=== PATIENT | female | born 1965 | race Caucasian/White ===

== ENCOUNTER → 2019-09-15 13:42 | Outpatient (BNVA) | payer BC, SELFPAY | PROVIDERS: Family Provider Family Medicine; PCP Family Medicine; Visit Provider Nurse Practitioner Women's Health | DX: Z01.89 Encounter for other specified special examinations (principal) ==

== ENCOUNTER 2019-09-22 07:26 | Day surgery (SDC) | payer BC, SELFPAY ==
[2019-09-21 13:12] VITALS: BMI 48.7
[2019-09-22 07:47] VITALS: BP 115/78; PULSE 83; RESP 18; TEMP 36.2; O2SAT 98
[2019-09-22] MEDS: sodium chloride 0.9% 1,000 ML 30 ML (07:55)
[2019-09-22 08:05] LABS: Glucose Point of Care 133 mg/dL (70-110)
--- NOTE | 2019-09-22 08:20 | P.ANESASSM_ITS ---
Pre-Anesthetic Assessment Pre-Anesthetic Assessment: Height/Weight: Height 1.65 m Weight 132.903 kg Temp Pulse Resp BP Pulse Ox 97.2 F L 83 18 115/78 98 09/22/19 07:47 09/22/19 07:47 09/22/19 07:47 09/22/19 07:47 09/22/19 07:47 Proposed Procedure: Operation Date: 09/22/19 08:30 Proposed Procedures p Colonoscopy 45896 Z86.010(Not Applicable) - Luisito Murray MD Was Beta Yong taken within 24 hours: Yes Social: Social History: Alcohol, No alcohol and No tobacco Exam: Pre-Anes Outpt Exam: alert, oriented x 3, clear to auscultation bilaterally and regular rate & rhythm Airway: Submandibular: WNL Cervical ROM: WNL MP: 2 Dentition: Full History/ROS: No significant history except as noted and No significant complaints Pulmonary: Pulmonary: Asthma CV/HEM: CV/HEM: HTN : : None reported Hepatic: Hepatic: None reported GI: GI: None reported Metabolic: Metabolic: DM and Thyroid Musc/skel: Musc/skel: None reported Neuropsych: Neuropsych: Anxiety Anesthetic Plan: ASA status: 3 Anesthesia: Anesthesia Evaluation and MAC Risk of > 500 ml blood loss (7ml/kg in children): No PFSH Anesthesia PFSH: Medical History (Updated 09/16/19 @ 06:56 by Kaya Hernandez DO) Asthma Diabetes GERD (gastroesophageal reflux disease) H/O adenomatous polyp of colon Joe's disease Hypertension Seasonal allergies Social History Smoking and tobacco status: never smoked Alcohol intake: current Alcohol intake frequency: holidays/special occasions only Lives independently: Yes Household members: spouse Marital status: Current occupational status: employed 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 History of recent travel: No Female Reproductive History: Date of last menstrual period: 09/09/19 Data Anesthesia Other Labs: Laboratory Results - last 48 hr 09/22/19 07:54 POC Glucose 133 Cardiac Studies: No Data to Display
--- NOTE | 2019-09-22 08:40 | PM.HPUD ---
H&P update H&P Update: DATE OF SURGERY/PROCEDURE: 09/22/19 DATE H&P PERFORMED: 08/24/19 H&P UPDATE INFORMATION: H&P completed within last 30 days and No changes to prior documentation PLANNED PROCEDURE: Operation Date: 09/22/19 08:30 Proposed Procedures p Colonoscopy 07236 Z86.010(Not Applicable) - Luisito Murray MD Full H&P Perinent History: Medical/Surgical History: Medical History (Updated 09/16/19 @ 06:56 by Kaya Hernandez DO) Asthma Diabetes GERD (gastroesophageal reflux disease) H/O adenomatous polyp of colon Joe's disease Hypertension Seasonal allergies Family History: Family History (Updated 09/15/19 @ 14:03 by Sarah Lee LPN) Father Cancer Lung Diabetes Stroke Mother Family history of thyroid problem Diabetes Heart disease Hypertension Stroke Sister Diabetes Anesthesia complication Had Stoke due to anesthesia. 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 History of recent travel: No
[2019-09-22 08:43] VITALS: BP 82/42; PULSE 66; RESP 16; TEMP 36.8; O2SAT 93
[2019-09-22 08:51] VITALS: BP 92/57; PULSE 68; RESP 18; O2SAT 100
== END 2019-09-22 09:10 | disposition home or self-care (01) ==
PROVIDERS: Family Provider Family Medicine; PCP Family Medicine; Visit Provider Surgery
PROC: 0DJD8ZZ Inspection of Lower Intestinal Tract, Via Natural or Artificial Opening Endoscopic (ICD-10-PCS; CPT 45378; principal; 2019-09-22 08:30)
DX: Z12.11 Encounter for screening for malignant neoplasm of colon (principal); Z86.010 Personal history of colon polyps; J45.909 Unspecified asthma, uncomplicated; K21.9 Gastro-esophageal reflux disease without esophagitis; I10 Essential (primary) hypertension; Z82.49 Family history of ischemic heart disease and other diseases of the circulatory system; Z83.3 Family history of diabetes mellitus; E11.9 Type 2 diabetes mellitus without complications
CPT/HCPCS: 12345; 36416; 45378; 82962; J2704; J7030

== ENCOUNTER 2019-10-21 11:03 | Outpatient (CLI) | payer BC, SELFPAY ==
--- NOTE | 2019-10-21 11:30 | MM_ITS ---
WS: [id number] BILATERAL DIGITAL SCREENING MAMMOGRAPHY WITH CAD CLINICAL INFORMATION: Screening HISTORY: Screening mammogram. No current complaints. COMPARISON: None. TECHNIQUE: Bilateral CC and MLO views. FINDINGS: The breasts are composed of heterogeneous fibroglandular density tissue, which can limit the detectio n of small underlying mass lesions. Lucent centered calcifications. No suspicious mass, asymmetry, ca lcifications, or architectural distortion. No evidence of malignancy. MM/[place] [id number] IMPRESSION: BI-RADS: 2-Benign FOLLOW UP: 1 Year Follow-up Recommend return to annual screening mammography.
== END 2019-10-21 11:04 | disposition home or self-care (01) ==
LOC: RADSHAW 11:05
PROVIDERS: Family Provider Family Medicine; PCP Family Medicine; Visit Provider Nurse Practitioner Women's Health
DX: Z12.31 Encounter for screening mammogram for malignant neoplasm of breast (principal)
CPT/HCPCS: 77067

== ENCOUNTER → 2019-12-08 08:28 | Outpatient (BNVA) | payer BC, SELFPAY | PROVIDERS: Family Provider Family Medicine; PCP Family Medicine; Visit Provider Family Medicine | DX: R30.0 Dysuria (principal); I10 Essential (primary) hypertension; E11.9 Type 2 diabetes mellitus without complications; N95.1 Menopausal and female climacteric states | CPT/HCPCS: 80053; 80061; 81000; 82044; 83036; 85025 ==

== ENCOUNTER → 2020-01-13 16:15 | Outpatient (BNVA) | payer BC, SELFPAY | PROVIDERS: Family Provider Family Medicine; PCP Family Medicine; Referring Provider Family Medicine; Visit Provider Family Medicine | DX: Z79.899 Other long term (current) drug therapy (principal); E11.9 Type 2 diabetes mellitus without complications | CPT/HCPCS: 36415; 80053 ==

== ENCOUNTER → 2020-02-26 14:57 | Outpatient (BNVA) | payer BC, SELFPAY | PROVIDERS: Family Provider Family Medicine; PCP Family Medicine; Visit Provider Family Medicine | DX: E78.5 Hyperlipidemia, unspecified (principal); E11.9 Type 2 diabetes mellitus without complications; E06.3 Autoimmune thyroiditis | CPT/HCPCS: 80053; 80061; 83036; 84443 ==

== ENCOUNTER → 2020-04-13 17:00 | Outpatient (BNVA) | payer BC, SELFPAY | PROVIDERS: Family Provider Family Medicine; PCP Family Medicine; Visit Provider Family Medicine | DX: E06.3 Autoimmune thyroiditis (principal) | CPT/HCPCS: 84443 ==

== ENCOUNTER → 2020-05-30 16:07 | Outpatient (BNVA) | payer BC, SELFPAY | PROVIDERS: Family Provider Family Medicine; PCP Family Medicine; Visit Provider Family Medicine | DX: E06.3 Autoimmune thyroiditis (principal) | CPT/HCPCS: 84443 ==

== ENCOUNTER → 2020-07-27 10:20 | Outpatient (BNVA) | payer BC, SELFPAY | PROVIDERS: Family Provider Family Medicine; PCP Family Medicine; Visit Provider Nurse Practitioner Family | DX: Z20.828 Contact with and (suspected) exposure to other viral communicable diseases (principal); R68.89 Other general symptoms and signs | CPT/HCPCS: 87635 ==

== ENCOUNTER → 2020-09-12 11:33 | Outpatient (BNVA) | payer BC, SELFPAY | PROVIDERS: Family Provider Family Medicine; PCP Family Medicine; Visit Provider Family Medicine | DX: E78.5 Hyperlipidemia, unspecified (principal); E11.9 Type 2 diabetes mellitus without complications; E06.3 Autoimmune thyroiditis; I10 Essential (primary) hypertension; M79.671 Pain in right foot; Z68.41 Body mass index [BMI] 40.0-44.9, adult | CPT/HCPCS: 73630; 80053; 80061; 81015; 82043; 83036; 85025 ==

== ENCOUNTER → 2021-02-07 08:30 | Outpatient (BNVA) | payer BC, SELFPAY | PROVIDERS: Family Provider Family Medicine; PCP Family Medicine; Visit Provider Family Medicine | DX: E06.3 Autoimmune thyroiditis (principal); R60.0 Localized edema | CPT/HCPCS: 84443 ==

== ENCOUNTER → 2021-03-07 09:13 | Outpatient (BNVA) | payer BC, SELFPAY | PROVIDERS: Family Provider Family Medicine; PCP Family Medicine; Visit Provider Family Medicine | DX: I10 Essential (primary) hypertension (principal); R60.0 Localized edema | CPT/HCPCS: 80048 ==

== ENCOUNTER → 2021-04-04 12:00 | Outpatient (BNVA) | payer BC, SELFPAY | PROVIDERS: Family Provider Family Medicine; PCP Family Medicine; Visit Provider Family Medicine | DX: R60.0 Localized edema (principal) | CPT/HCPCS: 80048 ==

== ENCOUNTER → 2021-06-06 16:59 | Outpatient (BNVA) | payer BC, SELFPAY | PROVIDERS: Family Provider Family Medicine; PCP Family Medicine; Visit Provider Nurse Practitioner Family | DX: N39.0 Urinary tract infection, site not specified (principal) | CPT/HCPCS: 81000; 87077; 87086; 87184 ==

== ENCOUNTER → 2021-07-31 10:51 | Outpatient (BNVA) | payer BC, SELFPAY | PROVIDERS: Family Provider Family Medicine; PCP Family Medicine; Visit Provider Family Medicine | DX: E11.9 Type 2 diabetes mellitus without complications (principal); E06.3 Autoimmune thyroiditis; E78.5 Hyperlipidemia, unspecified; I10 Essential (primary) hypertension | CPT/HCPCS: 80053; 80061; 82043; 83036; 84443; 85025 ==

== ENCOUNTER → 2021-09-01 14:50 | Outpatient (BNVA) | payer BC, SELFPAY | PROVIDERS: Family Provider Family Medicine; PCP Family Medicine; Visit Provider Nurse Practitioner Family | DX: J02.9 Acute pharyngitis, unspecified (principal); Z20.822 Contact with and (suspected) exposure to COVID-19 | CPT/HCPCS: 87635; 87880 ==

== ENCOUNTER → 2021-10-30 08:39 | Outpatient (BNVA) | payer BC, SELFPAY | PROVIDERS: Family Provider Family Medicine; PCP Family Medicine; Visit Provider Family Medicine | DX: E11.9 Type 2 diabetes mellitus without complications (principal); Z12.31 Encounter for screening mammogram for malignant neoplasm of breast | CPT/HCPCS: 80053; 83036 ==

== ENCOUNTER → 2021-11-10 10:42 | Outpatient (BNVA) | payer BC, SELFPAY | PROVIDERS: Family Provider Family Medicine; PCP Family Medicine; Visit Provider Nurse Practitioner Women's Health | DX: N95.0 Postmenopausal bleeding (principal); N76.3 Subacute and chronic vulvitis | CPT/HCPCS: 82670; 83001; 87624 ==

== ENCOUNTER 2021-11-28 09:56 | Outpatient (CLI) | payer BC, SELFPAY ==
--- NOTE | 2021-11-28 10:06 | MM_ITS ---
WS: [id number] VIEWS: MLO and CC views both breasts. 3D digital tomosynthesis is also included in this exam. Comparison made with prior exam of 10/21/2019. Findings: There was no sign of mass, architectural distortion or suspicious calcification in either breast. He terogeneously dense MM/[place] [id number] Impression: BI-RADS: 2-Benign FOLLOW-UP: 1 Year Follow-up This mammogram was also analyzed by the Computer Aided Detection System R2 Imag e Ultrasound Technol.
== END 2021-11-28 09:57 | disposition home or self-care (01) ==
LOC: RAD 09:58
PROVIDERS: PCP Family Medicine; Visit Provider Family Medicine
DX: Z12.31 Encounter for screening mammogram for malignant neoplasm of breast (principal)
CPT/HCPCS: 77063; 77067

== ENCOUNTER → 2021-12-01 11:02 | Outpatient (BNVA) | payer BC, SELFPAY | PROVIDERS: PCP Family Medicine; Visit Provider Nurse Practitioner Women's Health | DX: N95.0 Postmenopausal bleeding (principal) | CPT/HCPCS: 76830 ==

== ENCOUNTER → 2022-01-12 10:28 | Outpatient (BNVA) | payer BC, SELFPAY | PROVIDERS: PCP Family Medicine; Visit Provider Obstetrics & Gynecology | DX: Z01.812 Encounter for preprocedural laboratory examination (principal); Z01.818 Encounter for other preprocedural examination; N95.0 Postmenopausal bleeding | CPT/HCPCS: 80053; 81000; 81025; 85025; 86850; 86900 ==

== ENCOUNTER 2022-01-17 06:47 | Day surgery (SDC) | payer BC, SELFPAY ==
[2022-01-12 13:08] VITALS: BMI 45.9
--- NOTE | 2022-01-12 16:07 | ANES.PREANE2 ---
Pre-Anesthetic Assessment Height/Weight: Height 1.65 m Weight 125.191 kg Preop Diagnosis: post menopausal bleeding Operation Date: 01/17/22 08:30 Proposed Procedures p Hysteroscopy, dilation and curettage with Myosure 36189, 15043, 01190,N95.0(Not Applicable) - Edilson Jones MD s Dilation And Curettage (D&C)(Not Applicable) - Edilson Jones MD Familial anesthetic complications: none Was Beta Yong taken within 24 hours: N/A Was Clonidine taken within 24 hours: N/A Social No alcohol and No tobacco Exam alert, oriented x 3, clear to auscultation bilaterally and regular rate & rhythm Airway Submandibular: within normal limits Cervical ROM: within normal limits Mallampati: Class II Dentition: chipped Pulmonary Asthma (Well controlled ) CV/HEM Hypertension Known PFO Post menopausal bleeding Hepatic None reported GI Gastroesophageal Reflux Disease Metabolic Diabetes Mellitus and Thyroid Disease Musc/skel Osteoarthritis/DJD Neuropsych None reported Anesthetic Plan ASA status: 3 (56 year old morbidly obese female w/ hx of HTN, asthma, GERD, and post menopausal bleeding ) Anesthesia: Anesthesia Evaluation and General Other: We discussed risk and benefits of general anesthesia including PONV, sore throat (sometimes severe), corneal abrasion, positioning and peripheral nerve injuries, life threatening allergic reaction, post operative ICU admission requiring prolonged intubation, stroke, heart attack, , and rare incidences of recall. Patient consents to proceed with general anesthesia. Risk of > 500 ml blood loss (7ml/kg in children): No Medications/Allergies Home Medications Medication Instructions Recorded Confirmed Last Taken Type albuterol sulfate 90 mcg/actuation 2 puff INHALATION Q6H PRN 08/24/19 01/12/22 09/10/19 History aerosol inhaler (Ventolin HFA) cetirizine 10 mg tablet (Zyrtec) 10 mg PO DAILY 08/24/19 01/12/22 1 Day Ago History ~09/21/19 esomeprazole magnesium 20 mg 20 mg PO DAILY 08/24/19 01/12/22 1 Day Ago History capsule,delayed release (Nexium) ~09/21/19 fluticasone propionate 50 1 spray INTRANASAL BID 08/24/19 01/12/22 09/21/19 07:30 History mcg/actuation nasal spray,suspension olmesartan 20 mg tablet 20 mg PO DAILY #90 tab 04/06/21 01/12/22 Unknown Rx levothyroxine 88 mcg tablet 88 mcg PO DAILY 90 Days #90 tab 08/09/21 01/12/22 Unknown Rx atorvastatin 10 mg tablet 10 mg PO DAILY #90 tab 10/09/21 01/12/22 Unknown Rx lactobacillus combination no.4 3 3,000 mmu cells PO DAILY 10/30/21 01/12/22 Unknown History billion cell capsule (Probiotic) glipizide 2.5 mg tablet, extended 2.5 mg PO DAILY #90 tab 10/31/21 01/12/22 Unknown Rx release 24 hr hydrochlorothiazide 25 mg tablet See Rx Instructions .ROUTE 12/14/21 01/12/22 Unknown Rx .COMPLEX #180 tab metformin 500 mg tablet,extended See Rx Instructions .ROUTE 12/14/21 01/12/22 Unknown Rx release 24 hr .COMPLEX #180 tab montelukast 10 mg tablet See Rx Instructions .ROUTE 12/14/21 01/12/22 Unknown Rx .COMPLEX #90 tab Allergies Allergy/AdvReac Type Severity Reaction Status Date / Time rofecoxib [From Vioxx] Allergy Severe ALGY-Anaphy Verified 01/12/22 09:12 laxis adhesive tape Allergy ALGY-Bliste Verified 01/12/22 09:12 r codeine Allergy ALGY-Rash Verified 01/12/22 09:12 gentamicin Allergy ALGY-Hives Verified 01/12/22 09:12 Iodinated Contrast Media Allergy ALGY-Anaphy Verified 01/12/22 09:12 laxis naproxen Allergy ALGY-Difficulty Verified 01/12/22 09:12 Breathing tramadol [From Ultram] Allergy ALGY-Rash Verified 01/12/22 09:12 [facility] Anesthesia Medical History Asthma Diabetes GERD (gastroesophageal reflux disease) H/O adenomatous polyp of colon Joe's disease Hypertension Seasonal allergies Surgical History H/O section 1)--1986 2)--1991 added tubal H/O dilation and curettage (~2012) performed for bleeding: polyp was noted H/O exploratory laparotomy (~1988) no significant findings H/O hernia repair (~2004) Umbilical H/O tubal ligation (~1991) History of colonoscopy with polypectomy 2015: polyps removed 2020: normal , repeat 2030 History of lumpectomy (~1990) right breast; benign History of removal of cyst (~2013) right foot Hx of cholecystectomy (~1999) Hx of esophagogastroduodenoscopy (~2012) Family History Father Diabetes Stroke Mother Family history of thyroid problem Diabetes Heart disease Hypertension Stroke Sister Diabetes x2 Family history of thyroid problem Family/Other Breast cancer x3 Maternal aunts----dx age unknown Ovarian cancer x1 Maternal aunt-ovarian cancer--dx age unknown Brother Diabetes Family history of thyroid problem Denies family history of Colon cancer Hypercholesteremia Uterine cancer Social History Smoking and tobacco status: never smoked Alcohol intake: never 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 Female Reproductive History Date of last menstrual period: 09/09/19 Data Anesthesia Cardiac Studies: No Data to Display
[2022-01-17] VITALS (15 sets, daily range): BP systolic 123–164; BP diastolic 58–95; PULSE 64–90; RESP 10–21; TEMP 36.4–36.7; O2SAT 91–100
[2022-01-17] MEDS: sodium chloride 0.9% 1,000 ML 30 ML IV (07:43)
[2022-01-17] MEDS: scopolamine 1.5 Patch 1 PATCH TRANSDERMA (07:44)
[2022-01-17 07:48] LABS: Glucose Point of Care 101 mg/dL (70-110)
--- NOTE | 2022-01-17 08:43 | ECG_ITS ---
[facility] Test Date: 2022-01-17 Pat Name: Lora Birch Department: Room: Gender: Female Rn Medication: : 1965 Requested By: Cherie Thomas Order Number: [id number] Reading MD: Meliton Bragg M.D. Measurements Intervals [place] Rate: 58 P: 39 IN: 162 QRS: 11 QRSD: 105 T: 4 QT: 419 QTc: 415 Interpretive Statements SINUS BRADYCARDIA WITH OCCASIONAL SUPRAVENTRICULAR PREMATURE COMPLEXES IN A BIGEMINAL PATTERN NONSPECIFIC T-WAVE ABNORMALITY ABNORMAL RHYTHM ECG No previous ECG available for comparison Electronically Signed On 01-17-2022 20:18:32 CDT by Meliton Bragg M.D. [email or web address]
--- NOTE | 2022-01-17 08:45 | P.ANESUD_ITS ---
Pre-Anesthetic Update Pre-Anesthetic Assessment: Date of Surgery/Procedure: 01/17/22 Preop Belen gnosis: Postmenopausal bleeding Proposed Procedure: Operation Date: 01/17/22 08:30 Proposed Procedures p Hysteroscopy, dilation and curettage with Myosure 68854, 76563, 46449,N95.0(Not Applicable) - Edilson Jones MD s Dilation And Curettage (D&C)(Not Applicable) - Edilson Jones MD Last Intake: Intake Last Liquid Date 01/16/22 Last Liquid Time 20:00 Last Solid Date 01/16/22 Last Solid Time 17:00 Vitals: Temperature 98.1 F 01/17/22 07:32 Temperature Source Temporal Artery S can 01/17/22 07:32 Pulse Rate 64 01/17/22 07:32 Pulse Rhythm 01/17/22 07:32 Pulse Strength 3+ Normal 01/17/22 07:32 Respiratory Rate 18 01/17/22 07:32 Blood Pressure 151/87 01/17/22 07:32 Blood Pressure Mary n 108 01/17/22 07:32 Pulse Oximetry 99 01/17/22 07:32 Oxygen Delivery Me thod 01/17/22 07:32 Exam: Additional Exam Findings (including area of procedure): Irreg heart rate Cardiac Studies: No Data to Display
--- NOTE | 2022-01-17 09:29 | W.PM.OPSUD ---
Surgery/Procedure H&P Update DATE OF PROCEDURE: January 17, 2022 DATE H&P PERFORMED: 01/12/22 H&P UPDATE INFORMATION: I have reviewed H&P completed within last 30 days, I have examined patient prior to procedure and No changes to prior documentation PREOP DIAGNOSIS: Postmenopausal bleeding PLANNED PROCEDURE: Operation Date: 01/17/22 08:30 Proposed Procedures p Hysteroscopy, dilation and curettage with Myosure 44427, 09540, 95685,N95.0(Not Applicable) - Edilson Jones MD s Dilation And Curettage (D&C)(Not Applicable) - Edilson Jones MD
[2022-01-17] MEDS: enoxaparin 30 mg/0.3 mL Syringe SUBCUT (10:20)
--- NOTE | 2022-01-17 10:33 | PM.OP ---
Operative Report Date of procedure: January 17, 2022 Pre-op diagnosis: Preop Diagnosis Postmenopausal bleeding Post-op diagnosis: Postmenopausal bleed Post-op findings: Atrophic endometrium Procedure done: Hysteroscopy with dilation and curettage via MyoSure Specimens removed/disposition: Endometrial curette Surgeon: Edilson Jones MD Estimated blood loss (mL): 10 IV fluids (mL): 300 Complications: None Findings: Atrophic endometrium Procedure: After informed consent, the risks included but were not limited to bleeding, infection, injury to internal organs. The patient was counseled on a possible laparotomy and on the potential need for hysterectomy. The patient expressed understanding of the risks involved, all questions were answered, and the patient consented to the procedure. The patient was taken to the operating room where general anesthesia was administered. She was placed in the dorsal lithotomy position and prepped and draped in sterile fashion. A time out procedure was performed. The patient was examined under anesthesia and found to have a normal uterus with normal adnexa. A sterile weight speculum was placed in the vagina. The uterus was then gently sounded to 8 cm, and the cervix was dilated. The 0 degrees MyoSure hysteroscope was advanced gently to the uterine fundus while visualizing the monitor. Survey of the uterine cavity showed: Atrophic endometrium, the fundus shows atrophic in the mid; left ostium was visualized, and lateral wall with atrophic endometrium; right ostium visualized, and lateral wall with atrophic and; anterior and posterior calhoun are with atrophic in the mid; endocervical canal is normal. The MyoSure device was advanced and the direct visualization the atrophic endometrium was morcellated without complication. At the end of morcellation the fluid deficit was 305 mL and was estimated at approximately 100 mL were on the floor. There was minimal bleeding noted and the tenaculum removed with goad hemostasis noted. The patient tolerated the procedure well. The patient was taken to the recovery area in stable condition.
[2022-01-17] MEDS: meperidine 50 mg/mL INJ 12.5 MG IVP ×2 (10:59→11:08)
[2022-01-17 11:43] LABS: OR HCG Qualitative Urine Negative (Negative)
[2022-01-17] MEDS: acetaminophen 325 mg Tablet PO (12:30)
--- NOTE | 2022-01-17 13:34 | ANE.PACU2 ---
Inpatient post-anesthesia follow up: Airway intact: Yes Vital signs: Temperature 97.7 F Pulse Rate 64 Respiratory Rate 18 Blood Pressure 135/75 Pulse Oximetry 94 Oxygen Delivery Me thod Room Air Oxygen Flow Rate 1 Fraction of Inspir ed Oxygen Hydration adequate: Yes Nausea and vomiting: No Pain level: 3 Mental status: Baseline
== END 2022-01-17 13:14 | disposition home or self-care (01) ==
PROVIDERS: Anesthesiology; PCP Family Medicine; Visit Provider Obstetrics & Gynecology
PROC: 0UDB8ZZ Extraction of Endometrium, Via Natural or Artificial Opening Endoscopic (ICD-10-PCS; CPT 58558; principal; 2022-01-17 08:30)
PROC: (CPT 58120; 2022-01-17 08:30)
DX: N95.0 Postmenopausal bleeding (principal); E11.9 Type 2 diabetes mellitus without complications; M19.90 Unspecified osteoarthritis, unspecified site; E66.01 Morbid (severe) obesity due to excess calories; Z68.42 Body mass index [BMI] 45.0-49.9, adult; I10 Essential (primary) hypertension; J45.909 Unspecified asthma, uncomplicated; K21.9 Gastro-esophageal reflux disease without esophagitis; Z79.84 Long term (current) use of oral hypoglycemic drugs
CPT/HCPCS: 58558; 36416; 81025; 82962; 84703; 88305; 93005; J1100; J1200; J1650; J2175; J2250; J2405; J2704; J2710; J3010; J3490; J7030

== ENCOUNTER → 2022-03-15 09:47 | Outpatient (BNVA) | payer BC, SELFPAY | PROVIDERS: PCP Family Medicine; Visit Provider Obstetrics & Gynecology | DX: N95.0 Postmenopausal bleeding (principal); N85.8 Other specified noninflammatory disorders of uterus | CPT/HCPCS: 76830 ==

== ENCOUNTER → 2022-03-18 15:30 | Outpatient (BNVA) | payer BC, SELFPAY | PROVIDERS: PCP Family Medicine; Visit Provider Emergency Medicine | DX: N39.0 Urinary tract infection, site not specified (principal) | CPT/HCPCS: 81000 ==

== ENCOUNTER → 2022-04-30 08:58 | Outpatient (BNVA) | payer BC, SELFPAY | PROVIDERS: PCP Family Medicine; Visit Provider Family Medicine | DX: I10 Essential (primary) hypertension (principal); E78.5 Hyperlipidemia, unspecified; E11.9 Type 2 diabetes mellitus without complications; E06.3 Autoimmune thyroiditis | CPT/HCPCS: 80053; 80061; 82043; 83036; 84439; 84443; 85025 ==

== ENCOUNTER 2022-05-16 10:24 | Observation (INO) | payer BC, SELFPAY ==
[2022-05-15 10:20] VITALS: BMI 45.8
[2022-05-16] VITALS (20 sets, daily range): BP systolic 106–157; BP diastolic 62–97; PULSE 53–74; RESP 14–20; TEMP 36.3–37; O2SAT 94–100
--- NOTE | 2022-05-16 07:45 | P.ANESASSM_ITS ---
Pre-Anesthetic Assessment Height/Weight: Height 1.66 m Weight 127.006 kg Temp Pulse Resp BP Pulse Ox O2 Del Method 97.8 F 71 18 157/93 98 05/16/22 07:33 05/16/22 07:33 05/16/22 07:33 05/16/22 07:33 05/16/22 07:33 05/16/22 07:33 Preop Diagnosis: Postmenopausal bleeding Operation Date: 05/16/22 08:50 Proposed Procedures p Total Vaginal Hysterectomy,bilateral liliana-oophorectomy 35462/postmen bleeding N95.0(Bilateral) - Edilson Jones MD Familial anesthetic complications: None Was Beta Yong taken within 24 hours: N/A Was Clonidine taken within 24 hours: N/A Last intake: Intake Last Liquid Date 05/15/22 Last Liquid Time 23:20 Last Solid Date 05/15/22 Last Solid Time 18:30 Social No alcohol and No tobacco Exam alert, oriented x 3, clear to auscultation bilaterally and regular rate & rhythm Airway Submandibular: within normal limits Cervical ROM: within normal limits Mallampati: Class III Dentition: full History/ROS No significant complaints Pulmonary Asthma CV/HEM Hypertension Known PFO None reported Chronic vulvitis Hepatic None reported GI Gastroesophageal Reflux Disease Metabolic Diabetes Mellitus, Hyperlipidemia, Morbid Obesity and Thyroid Disease [facility] [place]/skel None reported Neuropsych None reported Anesthetic Plan ASA status: 3 ((56 year old morbidly obese female w/ hx of HTN, asthma, DLD, thy roid dysfunction, GERD, and post menopausal bleeding ) Anesthesia: Anesthesia Evaluation and General Other: We discussed risk and benefits of general anesthesia including PONV, sore throat (sometimes severe), corneal abrasion, positioning and peripheral nerve injuries, life threatening allergic reaction, post operative ICU admission requiring prolonged intubation, stroke, heart attack, , and rare incidences of recall. Patient consents to proceed with general anesthesia. Risk of > 500 ml blood loss (7ml/kg in children): No Medications/Allergies Home Medications Medication Instructions Recorded Confirmed Last Taken Type albuterol sulfate 90 mcg/actuation 2 puff inhalation Q6H PRN 08/24/19 05/16/22 09/10/19 History aerosol inhaler (Ventolin HFA) Shortness Of Breath cetirizine 10 mg tablet (Zyrtec) 10 mg PO DAILY 08/24/19 05/16/2222 History esomeprazole magnesium 20 mg 20 mg PO DAILY 08/24/19 05/16/22 05/15/22 History capsule,delayed release (Nexium) fluticasone propionate 50 1 spray intranasal BID 08/24/19 05/16/22 05/15/22 History mcg/actuation nasal spray,suspension lactobacillus combination no.4 3 3,000 mmu cells PO DAILY 10/30/21 05/16/22 05/15/22 History billion cell capsule (Probiotic) glipizide 2.5 mg tablet, extended 2.5 mg PO DAILY #90 tabs 10/31/21 05/16/22 05/15/22 Rx release 24 hr acetaminophen 325 mg capsule 325 mg PO Q4H PRN fever or pain 01/17/22 05/16/22 05/15/22 Rx #60 caps metformin 500 mg tablet,extended See Rx Instructions .Route 04/17/22 05/16/22 05/15/22 Rx release 24 hr .COMPLEX #180 tabs atorvastatin 10 mg tablet See Rx Instructions .Route 04/30/22 05/16/22 05/15/22 Rx .COMPLEX #90 tabs hydrochlorothiazide 25 mg tablet See Rx Instructions .Route 04/30/22 05/16/22 05/15/22 Rx .COMPLEX #180 tabs montelukast 10 mg tablet See Rx Instructions .Route 04/30/22 05/16/22 05/15/22 Rx .COMPLEX #90 tabs olmesartan 20 mg tablet 20 mg PO DAILY #90 tabs 04/30/22 05/16/22 05/15/22 Rx levothyroxine 88 mcg tablet See Rx Instructions .Route 05/09/22 05/16/22 05/15/22 Rx (Euthyrox) .COMPLEX #90 tabs Allergies Allergy/AdvReac Type Severity Reaction Status Date / Time rofecoxib [From Vioxx] Allergy Severe ALGY-Anaphy Verified 05/16/22 07:29 laxis adhesive tape Allergy ALGY-Bliste Verified 05/16/22 07:29 r codeine Allergy ALGY-Rash Verified 05/16/22 07:29 gentamicin Allergy ALGY-Hives Verified 05/16/22 07:29 Iodinated Contrast Media Allergy ALGY-Anaphy Verified 05/16/22 07:29 laxis naproxen Allergy ALGY-Difficulty Verified 05/16/22 07:29 Breathing tramadol [From Ultram] Allergy ALGY-Rash Verified 05/16/22 07:29 [facility] Anesthesia Medical History Asthma Diabetes GERD (gastroesophageal reflux disease) H/O adenomatous polyp of colon Joe's disease Hypertension Seasonal allergies Status post hysteroscopy 01/17/2022- hysteroscopy with D&C via Myosure performed by Dr. Jones at [facility] Surgical History H/O section 1)--1986 2)--1991 added tubal H/O dilation and curettage (~2012) performed for bleeding: polyp was noted H/O exploratory laparotomy (~1988) no significant findings H/O hernia repair (~2004) Umbilical H/O tubal ligation (~1991) History of colonoscopy with polypectomy 2014: polyps removed 2020: normal , repeat 2029 History of lumpectomy (~1990) right breast; benign History of removal of cyst (~2013) right foot Hx of cholecystectomy (~1999) Hx of esophagogastroduodenoscopy (~2012) Family History Father Diabetes Stroke Mother Family history of thyroid problem Diabetes Heart disease Hypertension Stroke Sister Diabetes x2 Family history of thyroid problem Family/Other Breast cancer x3 Maternal aunts----dx age unknown Ovarian cancer x1 Maternal aunt-ovarian cancer--dx age unknown Brother Diabetes Family history of thyroid problem Denies family history of Colon cancer Hypercholesteremia Uterine cancer Social History Smoking and tobacco status: never smoked Female Reproductive History Date of last menstrual period: 09/09/19 Data Anesthesia : 05/16/22 07:55 05/16/22 07:55 Cardiac Studies: No Data to Display
[2022-05-16 07:50] LABS: OR HCG Qualitative Urine Negative (Negative)
[2022-05-16 07:55] LABS: Glucose Point of Care 104 mg/dL (70-110)
[2022-05-16] MEDS: sodium chloride 0.9% 500 ML 999 ML IV (07:59)
[2022-05-16] MEDS: scopolamine 1.5 Patch 1 PATCH TRANSDERMA (08:00)
[2022-05-16 08:01] LABS: Basophils # 0.1 10^3/uL (0.0-0.1); Basophils % 0.9 %; Eosinophils # 0.2 10^3/uL (0.0-0.8); Eosinophils % 3.6 %; Hematocrit 42.7 % (37.0-47.0); Lymphocytes # 2.5 10^3/uL (0.8-4.8); Lymphocytes % 37.2 %; Mean Corpuscular HGB Conc 32.8 g/dL (30.0-36.0); Mean Corpuscular Hemoglobin 30.8 pg (28.0-34.0); Mean Corpuscular Volume 93.8 fl (81-99); Mean Platelet Volume 11.4 fL (7.4-10.4); Monocytes # 0.7 10^3/uL (0.2-0.9); Monocytes % 10.9 %; Neutrophils # 3.09 10^3/uL (1.8-7.7); Neutrophils % 47.1 %; Nucleated Red Blood Cells % 0 %; Platelet Count 179 10^3/cmm (130-400); Red Blood Count 4.55 10^6/uL (4.1-5.3); Red Cell Distribution Width 12.9 % (12.1-15.1); White Blood Count 6.6 10^3/uL (4.0-10.0)
[2022-05-16] MEDS: enoxaparin 30 mg/0.3 mL Syringe SUBCUT (08:05)
--- NOTE | 2022-05-16 08:23 | W.PM.OPSUD ---
Surgery/Procedure H&P Update DATE OF PROCEDURE: May 16, 2022 DATE H&P PERFORMED: 05/11/22 H&P UPDATE INFORMATION: I have reviewed H&P completed within last 30 days, I have examined patient prior to procedure and No changes to prior documentation PREOP DIAGNOSIS: Postmenopausal bleeding PLANNED PROCEDURE: Operation Date: 05/16/22 08:50 Proposed Procedures p Total Vaginal Hysterectomy,bilateral liliana-oophorectomy 27445/postmen bleeding N95.0(Bilateral) - Edilson Jones MD
[2022-05-16] MEDS: sodium chloride 0.9% 1,000 ML 30 ML IV (08:30)
[2022-05-16] MEDS: ceFOXitin 2,000 MG in sodium chloride 0.9% (plus) 50 ML 100 MG IV (08:52)
[2022-05-16 09:05] LABS: Alanine Aminotransferase 15 U/L (0-33); Albumin Level 3.6 g/dL (3.5-5.2); Alkaline Phosphatase 71 U/L (35-105); Aspartate Amino Transferase 15 U/L (0-32); Blood Urea Nitrogen 14 mg/dL (6-20); Calcium 8.8 mg/dL (8.5-10.5); Carbon Dioxide 27 mmol/L (22-29); Chloride 104 mmol/L (98-107); Globulin 2.2 g/dL (1.3-4.6); Glomerular Filtration Rate 104.2 mL/min (90-130); Glucose 116 mg/dL (65-115); Osmolality Calculated 293 mOsm/kg (285-295); Sodium 141 mmol/L (136-145); Total Bilirubin 0.6 mg/dL (0.15-1.2); Total Protein 5.8 g/dL (6.6-8.7)
--- NOTE | 2022-05-16 10:31 | PM.OP ---
Operative Report Date of procedure: May 16, 2022 Pre-op diagnosis: Preop Diagnosis Postmenopausal bleeding Post-op diagnosis: Same as above Procedure done: Total vaginal hysterectomy with bilateral salpingo-oophorectomy Specimens removed/disposition: Uterus. Left and right fallopian tube and ovaries Surgeon: Edilson Jones MD Estimated blood loss (mL): 25 IV fluids (mL): 700 Urine output (mL): 100 Procedure: After informed consent and risks, benefits, indications and alternatives reviewed with the patient was taken to the operating room. The patient was placed in dorsal lithotomy position prepped, and draped in the usual sterile fashion. The pre-procedure timeout verifying the correct patient, procedure, site and side, could not requirements was performed and acknowledge by the OR team. A Griffith catheter was placed. A Bookwalter vaginal retractor was placed into the vagina in usual manner visualize the cervix. Cervix was grasped with a single tooth tenaculum and circumferentially infiltrated with 2% lidocaine with epinephrine. Then cervix was circumferentially incised with bovie and the bladder was dissected off the pubovesical cervical fascia anteriorly with a sponge stick and Metzenbaum scissors. The anterior peritoneal reflection was identified and the anterior cul-de-sac was entered sharply with Metzenbaum scissors. The same procedure was performed posteriorly and a posterior colpotomy was made through the posterior cul-de-sac space without difficulty and the posterior blade of the Bookwalter vaginal retractor was advanced posteriorly into the cul-de-sac. At this time, the left and right uterosacral ligaments were isolated and ligated with 0 Vicryl. The Voyant device was placed over the uterosacral ligaments on either side and was then used in a serial fashion up through the cardinal ligaments bilaterally cross-clamped, cut, and sealed with the Voyant device. Finally, the uterine arteries were cross-clamped, cut, sealed and ligated with the Voyant device. Hemostasis was assured. The broad ligaments were then serially clamped, sealed and cut with the Voyant device on both sides. Excellent hemostasis was visualized. Both cornua were clamped, sealed and cut with the Voyant device. Then the pedicles were then suture ligated with excellent hemostasis. The uterus was excised and submitted for pathologic evaluation. No other abnormalities were noted in the pelvic cavity. Then the right side Infundibular ligament was identified. The ureter was confirmed along the pelvic side wall and peristalsis was noted. The Voyant device was then used to clamp, sealed and transcepted at middistance, again being sure to be clear of the ureter and the fallopian tube and ovary were removed. The same process was then repeated on the left side. Good hemostasis was assure on both sides. The peritoneum was then closed in a pursestring fashion with 0 Vicryl suture. The patient was given methylene blue IV. The vaginal cuff angles were closed with [id number] #0 Vicryl suture on both sides and transfixed with the ipsilateral cardinal and uterosacral ligaments. The remainder of the vaginal cuff was closed with #0 Vicryl in a running locked fashion. At this time, instruments were removed from the vagina at hemostasis assured. Griffith catheter was noted yielding clear grant urine. The patient was taken out of dorsal lithotomy position and awakened from the general anesthesia. The patient tolerated the procedure well and was taken to the PACU recovery room in a stable condition. Sponge, lap, needle and instruments counts were correct x3.
[2022-05-16] MEDS: HYDROmorphone 1 mg/mL INJ 1 mL 0.5 MG IVP (10:54)
--- NOTE | 2022-05-16 11:24 | SUR.PHASEI ---
1038 PT TO PACU 5 PT AWAKES TO VOICE, GOOD RESP EFFORT NOTED ABDOMEN LARGE SOFT WITH LIAM PAD D/I [facility] WITH LT GREEN CLEAR URINE TO TUBING AND BAG, STATLOCK TO RT INNER THIGH, LIAM PAD IN PLACE C/I BILAT SCDS ON AND WORKING IV TO RT HAND #20 WITH NS 500ML UP AT KVO RATE PER GRAVITY, ID BRACELET TO LT WRIST , PT ID'D WITH 2 IDENTIFIERS. PT DENIES PAIN AT THIS TIME, WARM BLANKETS X 4 TO PT. 1045 PT NOW FROWNING WITH C/O OF PAIN OF 7/10 TO LOWER ABDOMEN, BURNING PAIN PT REPOSITIONED TO COMFORT WARM BLANKETS X 3 ON TO ABDOMEN, PT BACK TO SLEEP WITH GOOD RESP NOTED 1054 SEE PAIN MED PT TEARFUL NOW, PT STATES PAIN IS WORSE, SEE PAIN MED GIVEN ORDERED. 1115 PT GIVEN WARM BLANKETS 4 PT SLEEPS IF NOT DISTURBED STATES PAIN IS BETTER. WILL UP DATE PT FAMILY IN WAITING ROOM.
[2022-05-16] MEDS: HYDROcodone-acetaminophen 5-325 mg Tablet PO ×2 (13:23→20:11)
[2022-05-16] MEDS: ondansetron 2 mg/ML SDV 2 mL 4 MG IVP (13:27)
--- NOTE | 2022-05-16 13:29 | ANE.PACU2 ---
Inpatient post-anesthesia follow up: Airway intact: Yes Vital signs: Temperature 98.6 F Pulse Rate 57 Respiratory Rate 18 Blood Pressure 137/72 Pulse Oximetry 100 Oxygen Delivery Me thod Room Air Oxygen Flow Rate 8 Fraction of Inspir ed Oxygen Hydration adequate: Yes Nausea and vomiting: No Pain level: 6 Mental status: Baseline
[2022-05-16] MEDS: dextrose 5%-lactated ringers 1,000 ML 125 ML IV ×2 (14:14→22:48)
[2022-05-16] MEDS: hydroCHLOROthiazide 25 mg Tablet PO (14:25)
[2022-05-16] MEDS: ibuprofen 800 mg tablet PO ×2 (15:27→22:43)
[2022-05-16] MEDS: fluticasone nasal spray 16gm Btl 1 SPRAY INTRANASAL (19:05)
[2022-05-16] MEDS: docusate sodium 100 mg Capsule PO (19:05)
[2022-05-16] MEDS: metformin XR 500 MG Tablet PO (19:10)
[2022-05-17 05:04] LABS: Hematocrit 35.6 % (37.0-47.0); Hemoglobin 11.6 g/dL (11.5-15.3); Mean Corpuscular HGB Conc 32.6 g/dL (30.0-36.0); Mean Corpuscular Hemoglobin 31.2 pg (28.0-34.0); Mean Corpuscular Volume 95.7 fl (81-99); Mean Platelet Volume 11.2 fL (7.4-10.4); Platelet Count 149 10^3/cmm (130-400); Red Blood Count 3.72 10^6/uL (4.1-5.3); Red Cell Distribution Width 13.1 % (12.1-15.1)
[2022-05-17 05:26] VITALS: BP 125/69; PULSE 65; RESP 16; O2SAT 96
[2022-05-17] MEDS: fluticasone nasal spray 16gm Btl 1 SPRAY INTRANASAL (09:03)
[2022-05-17] MEDS: ondansetron 4 MG Tablet PO (09:03)
[2022-05-17] MEDS: docusate sodium 100 mg Capsule PO (09:04)
[2022-05-17] MEDS: metformin XR 500 MG Tablet PO (09:04)
[2022-05-17] MEDS: hydroCHLOROthiazide 25 mg Tablet PO (09:05)
[2022-05-17] MEDS: ibuprofen 800 mg tablet PO (09:06)
[2022-05-17] MEDS: levothyroxine 88 mcg Tablet PO (09:06)
--- NOTE | 2022-05-17 10:16 | PM.OBGYDC ---
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 Birch 56-year-old female with a history of recurrent postmenopausal bleeding admitted for planned total vaginal hysterectomy and bilateral salpingo-oophorectomy. The procedures were performed without complications. Overnight observation was uneventful. She is afebrile and hemodynamically stable postoperative day 1. Tolerating diet well. Ambulating without difficulty. Refers she gets a little nauseous every time she gets pain medication that is controlled with Zofran. Physical Exam Narrative: GA: Alert and oriented ?3. HEENT: WNL. Heart: Regular rate and rhythm. Lungs: Clear to auscultation bilaterally. Abdomen: Bowel sounds present, nontender. FACULTY SUPPORT COORDINATOR: Scant bleeding. Extremities: No edema, no cyanosis, no calves pain. Urinary Catheter Management: Griffith: Cath Placed During This Visit: yes, but has since been removed by the nurse Reason for Continuing Indwelling Catheter: Decision to DC Catheter Urinary Catheter Date of Insertion: 05/16/22 Urinary Catheter Time of Insertion: 07:26 Date Urinary Catheter Removed: 05/17/22 Time Urinary Catheter Discontinued: 04:57 History History History 4 Term 2 0 Miscarriages/Ectopic 2 Living Children 2 Discharge Data Studies Completed and Pending Pending at discharge Category Date Time Status Pathology: Surgical [PTH] Routine Pth 05/16/22 10:21 Received Laboratory Results WBC 9.0 10^3/uL (4.0-10.0) 05/17/22 04:57 RBC 3.72 10^6/uL (4.1-5.3) L 05/17/22 04:57 Hgb 11.6 g/dL (11.5-15.3) 05/17/22 04:57 Hct 35.6 % (37.0-47.0) L 05/17/22 04:57 MCV 95.7 fl (81-99) 05/17/22 04:57 MCH 31.2 pg (28.0-34.0) 05/17/22 04:57 MCHC 32.6 g/dL (30.0-36.0) 05/17/22 04:57 RDW 13.1 % (12.1-15.1) 05/17/22 04:57 Plt Count 149 10^3/cmm (130-400) 05/17/22 04:57 MPV 11.2 fL (7.4-10.4) H 05/17/22 04:57 Neut % (Auto) 47.1 % 05/16/22 07:55 Lymph % (Auto) 37.2 % 05/16/22 07:55 Dare % (Auto) 10.9 % 05/16/22 07:55 Eos % (Auto) 3.6 % 05/16/22 07:55 Baso % (Auto) 0.9 % 05/16/22 07:55 Neut # (Auto) 3.09 10^3/uL (1.8-7.7) 05/16/22 07:55 Lymph # (Auto) 2.5 10^3/uL (0.8-4.8) 05/16/22 07:55 Dare # (Auto) 0.7 10^3/uL (0.2-0.9) 05/16/22 07:55 Eos # (Auto) 0.2 10^3/uL (0.0-0.8) 05/16/22 07:55 Baso # (Auto) 0.1 10^3/uL (0.0-0.1) 05/16/22 07:55 Nucleated RBC % (auto) 0 % 05/16/22 07:55 Nucleated RBCs # 0.0 /100WBC 05/16/22 07:55 Sodium 141 mmol/L (136-145) 05/16/22 08:31 Potassium 4.0 mmol/L (3.5-5.1) 05/16/22 08:31 Chloride 104 mmol/L (98-107) 05/16/22 08:31 Carbon Dioxide 27 mmol/L (22-29) 05/16/22 08:31 Anion Gap 14.0 (5-19) 05/16/22 08:31 BUN 14 mg/dL (6-20) 05/16/22 08:31 Creatinine 0.6 mg/dL (0.5-0.9) 05/16/22 08:31 GFR Calculation 104.2 mL/min (90-130) 05/16/22 08:31 Glucose 116 mg/dL (65-115) H 05/16/22 08:31 POC Glucose 104 mg/dL (70-110) 05/16/22 07:52 Calculated Osmolality 293 mOsm/kg (285-295) 05/16/22 08:31 Calcium 8.8 mg/dL (8.5-10.5) 05/16/22 08:31 Total Bilirubin 0.6 mg/dL (0.15-1.2) 05/16/22 08:31 AST 15 U/L (0-32) 05/16/22 08:31 ALT 15 U/L (0-33) 05/16/22 08:31 Alkaline Phosphatase 71 U/L (35-105) 05/16/22 08:31 Total Protein 5.8 g/dL (6.6-8.7) L 05/16/22 08:31 Albumin 3.6 g/dL (3.5-5.2) 05/16/22 08:31 Globulin 2.2 g/dL (1.3-4.6) 05/16/22 08:31 Urine HCG, Qual Negative (Negative) 05/16/22 07:49 Blood Type O Positive 05/16/22 07:55 Rho(D) Type Positive 05/16/22 07:55 Antibody Screen Negative 05/16/22 07:55 Vitals Last Vital Signs Temp 98.0 F 05/16/22 17:00 Pulse 65 05/17/22 05:26 Resp 16 05/17/22 05:26 BP 125/69 05/17/22 05:26 Pulse Ox 96 05/17/22 05:26 O2 Del Method 05/17/22 05:26 O2 Flow Rate 8 05/16/22 11:00 Discharge Plan Discharge Patient Disposition: Home Condition: Stable Prescriptions: New hydrocodone-acetaminophen 5-325 mg tablet 1 tab PO Q4H PRN (Reason: pain) Qty: 10 0RF acetaminophen 325 mg capsule 325 mg PO Q4H PRN (Reason: fever or pain) Qty: 60 0RF docusate sodium [Colace] 100 mg capsule 100 mg PO BID Qty: 60 0RF ibuprofen 800 mg tablet 800 mg PO TID PRN (Reason: pain) Qty: 60 0RF ondansetron 4 mg tablet,disintegrating 4 mg PO Q8H 5 Days Qty: 15 0RF Continued Probiotic 3 billion cell capsule 3,000 mmu cells PO DAILY Rx Instructions: administer with a meal albuterol sulfate [Ventolin HFA] 90 mcg/actuation HFA aerosol inhaler 2 puff INHALATION Q6H PRN (Reason: Shortness Of Breath) cetirizine [Zyrtec] 10 mg tablet 10 mg PO DAILY fluticasone propionate 50 mcg/actuation spray,suspension 1 spray INTRANASAL BID esomeprazole magnesium [Nexium] 20 mg capsule,delayed release(DR/EC) 20 mg PO DAILY metformin 500 mg tablet extended release 24 hr See Rx Instructions .ROUTE .COMPLEX Qty: 180 0RF Dose Instruction: Take 1 tablet by mouth twice daily Rx Instructions: Take 1 tablet by mouth twice daily hydrochlorothiazide 25 mg tablet See Rx Instructions .ROUTE .COMPLEX Qty: 180 1RF Dose Instruction: Take 1 tablet by mouth twice daily Rx Instructions: Take 1 tablet by mouth twice daily olmesartan 20 mg tablet 20 mg PO DAILY Qty: 90 1RF montelukast 10 mg tablet See Rx Instructions .ROUTE .COMPLEX Qty: 90 1RF Dose Instruction: Take 1 tablet by mouth once daily Rx Instructions: Take 1 tablet by mouth once daily atorvastatin 10 mg tablet See Rx Instructions .ROUTE .COMPLEX Qty: 90 1RF Dose Instruction: Take 1 tablet by mouth once daily Rx Instructions: Take 1 tablet by mouth once daily levothyroxine [Euthyrox] 88 mcg tablet See Rx Instructions .ROUTE .COMPLEX Qty: 90 0RF Dose Instruction: Take 1 tablet by mouth once daily Rx Instructions: Take 1 tablet by mouth once daily glipizide 2.5 mg tablet extended release 24hr See Rx Instructions .ROUTE .COMPLEX Qty: 90 1RF Dose Instruction: Take 1 tablet by mouth once daily Rx Instructions: Take 1 tablet by mouth once daily acetaminophen 325 mg capsule 325 mg PO Q4H PRN (Reason: fever or pain) Qty: 60 0RF Discharge Orders: Discharge Order (Routine); Ordered 05/17/22 Ordered By: Edilson Jones Referrals: Edilson Jones MD [Physician] - 05/30/22 9:45 am ( Your [address] up [address] Jones will be on May 30 at 9:45am Your 6 week follow up with Dr Jones will be on Jun 29 at 3:45pm ) Discharge Diet: Advance as tolerated Discharge Activity: Limit activity as instructed Patient Instructions: Hydrocodone/Acetaminophen (By mouth) (Vicodin, [place], Lortab), Vaginal Hysterectomy (GEN), OB Discharge Report, OB Laproscopic Surgery - [facility], OB Food/Drug Interaction Guide, Opioid Safety Activity Restrictions/Additional Instructions: 1. Please call [facility] on next working day to make your post[-operative] appointment in [2] weeks. 2. Please stay home until you come back to the clinic on first post-operative check up. 3. Please follow instructions on your medications CAREFULLY. 4. If you have abdominal incision, do not cover it unless dressing is necessary because of drainage. OK to shower, but avoid bath. Leave steri-strips until they fall off. If they are still on one week after surgery, you may remove them. 5. If you had vaginal surgery or vaginal repair, Dr. Jones may instruct you to take SITZ bath. 6. Yellow, blood tinged odorous vaginal discharge is usually normal after hysterectomy or vaginal surgeries. 7. No sexual intercourse, tampons, or douches until you are completely released from the post-operative care. 8. Avoid constipation by eating right and maybe using some Metamucil or Milk of Magnesia. 9. All prescription refills are given during the working hours. Please do no wait till it runs out. Call the clinic at [phone] before your medication runs out. The clinic will get in touch with your doctor to prescribe medications if necessary. 10. Please remain within 40 mile radius from our hospital because emergencies do happen now and then during the post-operative period. 11. If you have stairs at home, take one step at a time slowly and minimize the number of trips. It helps to stay in one floor for the next few days. No lifting except what you can lift by one hand until you are released from the post-operative care. 12. Driving is discouraged until you are well healed. It may be 3-4 weeks before you feel strong enough to drive. You should be able to turn and look through the rear window without pain and you should be able to push the brake pedal very hard without pain before you drive. No fast rules, but SAFETY should be your primary concern. DO NOT drive if you are on sedating medications such as narcotics. 13. Call the clinic (during working hours) to make urgent appointment or go to the Emergency room, if any of the following occurs: i. Vaginal bleeding becomes heavy, more than a period. ii. Incision becomes red and sore, or drains pus. iii. Your temperature is over 100.4 or you have chill. iv. IV site becomes red and swollen (a little ``knot?? is usually OK) v. Persistent nausea and vomiting vi. Persistent constipation or diarrhea vii. Rash or allergic reaction to medications. Discharge Attestations EMERGENCY VEHICLE OPERATIONS INSTRUCTOR Time Spent in Discharge Care*: greater than 30 min Coding Level of Care Code Acute Steam Tank Operator for Kianna Bañuelos
[2022-05-17] MEDS: HYDROcodone-acetaminophen 5-325 mg Tablet PO (10:57)
[2022-05-17 11:00] VITALS: BP 128/65; PULSE 63; RESP 16; TEMP 36.8; O2SAT 96
== END 2022-05-17 11:05 | disposition home or self-care (01) ==
LOC: OBGYN 10:24
PROVIDERS: Anesthesiology; Admitting Provider Obstetrics & Gynecology; PCP Family Medicine; Visit Provider Obstetrics & Gynecology
PROC: (CPT 58262; principal; 2022-05-16 08:40)
DX: N95.0 Postmenopausal bleeding (principal); I10 Essential (primary) hypertension; K21.9 Gastro-esophageal reflux disease without esophagitis; E11.9 Type 2 diabetes mellitus without complications; E78.5 Hyperlipidemia, unspecified; E66.01 Morbid (severe) obesity due to excess calories; Z68.42 Body mass index [BMI] 45.0-49.9, adult; Z79.84 Long term (current) use of oral hypoglycemic drugs
CPT/HCPCS: 58262; 36415; 36416; 80053; 81025; 82962; 84703; 85025; 85027; 86850; 86900; 88307; G0378; J0694; J1100; J1170; J1650; J2250; J2405; J2704; J2710; J3010; J3490; J7030; J7040; Q0162; Q9968

== ENCOUNTER → 2022-11-06 09:34 | Outpatient (BNVA) | payer BC, SELFPAY | PROVIDERS: PCP Family Medicine; Visit Provider Family Medicine | DX: E11.9 Type 2 diabetes mellitus without complications (principal); E06.3 Autoimmune thyroiditis | CPT/HCPCS: 80053; 83036; 84439; 84443 ==

== ENCOUNTER 2022-11-30 07:52 | Outpatient (CLI) | payer BC, SELFPAY ==
--- NOTE | 2022-11-30 08:36 | MM_ITS ---
WS: [id number] ..... BILATERAL SCREENING DIGITAL TOMOSYNTHESIS MAMMOGRAM WITH CAD HISTORY: Screening exam. COMPARISON: 11/28/2021, 10/21/2019 Bilateral CC and MLO views with tomosynthesis and synthetic mammography submitted. Computer aided det ection analyzed. Breast composition: The breasts are heterogeneously dense, which may obscure small masses. No suspici ous masses, microcalcifications or architectural distortion. MM/[id number] IMPRESSION: BI-RADS: 1-Negative FOLLOW UP: 1 Year Follow-up
== END 2022-11-30 07:53 | disposition home or self-care (01) ==
PROVIDERS: PCP Family Medicine; Visit Provider Family Medicine
DX: Z12.31 Encounter for screening mammogram for malignant neoplasm of breast (principal)
CPT/HCPCS: 77063; 77067

== ENCOUNTER → 2023-01-10 15:36 | Outpatient (BNVA) | payer BC, SELFPAY | PROVIDERS: PCP Family Medicine; Visit Provider Nurse Practitioner Family | DX: M25.531 Pain in right wrist (principal) | CPT/HCPCS: 73110 ==

== ENCOUNTER → 2023-04-18 12:09 | Outpatient (BNVA) | payer BC, SELFPAY | PROVIDERS: PCP Family Medicine; Visit Provider Family Medicine | DX: I10 Essential (primary) hypertension (principal); E78.5 Hyperlipidemia, unspecified; E11.9 Type 2 diabetes mellitus without complications; E06.3 Autoimmune thyroiditis | CPT/HCPCS: 80053; 80061; 82043; 83036; 84439; 84443; 85025 ==

== ENCOUNTER → 2023-10-29 10:41 | Outpatient (BNVA) | payer BC, SELFPAY | PROVIDERS: PCP Family Medicine; Visit Provider Family Medicine | DX: E11.9 Type 2 diabetes mellitus without complications (principal); E06.3 Autoimmune thyroiditis | CPT/HCPCS: 80048; 83036; 84439; 84443 ==

== ENCOUNTER → 2023-12-03 09:08 | Outpatient (BNVA) | payer BC, SELFPAY | PROVIDERS: PCP Family Medicine; Visit Provider Family Medicine | DX: E11.9 Type 2 diabetes mellitus without complications (principal); M25.50 Pain in unspecified joint; Z13.6 Encounter for screening for cardiovascular disorders | CPT/HCPCS: 80053; 85025; 85651; 86038; 86140; 86200; 86431 ==

== ENCOUNTER → 2024-03-02 15:59 | Outpatient (BNVA) | payer BC, SELFPAY | PROVIDERS: PCP Family Medicine; Visit Provider Nurse Practitioner | DX: R53.83 Other fatigue (principal); M25.561 Pain in right knee; Z12.39 Encounter for other screening for malignant neoplasm of breast; M25.762 Osteophyte, left knee | CPT/HCPCS: 73562; 84443 ==

== ENCOUNTER → 2024-03-08 12:03 | Outpatient (BNVA) | payer BC, SELFPAY | PROVIDERS: PCP Nurse Practitioner; Visit Provider Nurse Practitioner | DX: R68.89 Other general symptoms and signs (principal); J06.9 Acute upper respiratory infection, unspecified; J02.9 Acute pharyngitis, unspecified | CPT/HCPCS: 87400; 87426 ==

== ENCOUNTER 2024-03-19 15:10 | Outpatient (CLI) | payer BC, SELFPAY ==
--- NOTE | 2024-03-19 15:40 | MM_ITS ---
WS: [id number] BILATERAL SCREENING DIGITAL TOMOSYNTHESIS MAMMOGRAM WITH CAD HISTORY: SCREENING COMPARISON: 11/30/2022, 11/28/2021 Bilateral CC and MLO views with tomosynthesis and synthetic mammography submitted. Computer aided det ection analyzed. Breast composition: The breasts are heterogeneously dense, which may obscure small masses. No suspici ous masses, microcalcifications or architectural distortion. Asymmetries and calcifications within ea ch breast are stable. MM/[id number] IMPRESSION: BI-RADS: 2-Benign FOLLOW UP: 1 Year Follow-up
== END 2024-03-19 15:11 | disposition home or self-care (01) ==
LOC: MOBLMAM 15:18
PROVIDERS: PCP Nurse Practitioner; Visit Provider Nurse Practitioner
DX: Z12.31 Encounter for screening mammogram for malignant neoplasm of breast (principal)
CPT/HCPCS: 77063; 77067

== ENCOUNTER → 2024-06-18 15:40 | Outpatient (BNVA) | payer BC, SELFPAY | PROVIDERS: PCP Nurse Practitioner; Visit Provider Nurse Practitioner | DX: R31.9 Hematuria, unspecified (principal) | CPT/HCPCS: 81000; 87086 ==

== ENCOUNTER → 2024-07-04 09:02 | Outpatient (BNVA) | payer BC, SELFPAY | PROVIDERS: PCP Nurse Practitioner; Visit Provider Nurse Practitioner | DX: R31.9 Hematuria, unspecified (principal) | CPT/HCPCS: 81000 ==

== ENCOUNTER → 2024-07-20 14:47 | Outpatient (BNVA) | payer BC, SELFPAY | PROVIDERS: PCP Nurse Practitioner; Visit Provider Nurse Practitioner | DX: N39.0 Urinary tract infection, site not specified (principal) | CPT/HCPCS: 81000; 87086 ==

== ENCOUNTER → 2024-07-29 16:53 | Outpatient (BNVA) | payer BC, SELFPAY | PROVIDERS: PCP Nurse Practitioner; Visit Provider Nurse Practitioner | DX: R31.9 Hematuria, unspecified (principal) | CPT/HCPCS: 81000; 87086 ==

== ENCOUNTER → 2024-08-27 16:24 | Outpatient (BNVA) | payer BC, SELFPAY | PROVIDERS: PCP Nurse Practitioner; Visit Provider Nurse Practitioner | DX: E11.9 Type 2 diabetes mellitus without complications (principal) | CPT/HCPCS: 83036 ==

== ENCOUNTER → 2024-12-09 16:25 | Outpatient (BNVA) | payer BC, SELFPAY | PROVIDERS: PCP Nurse Practitioner; Visit Provider Nurse Practitioner | DX: E11.9 Type 2 diabetes mellitus without complications (principal); I10 Essential (primary) hypertension; E78.5 Hyperlipidemia, unspecified; E06.3 Autoimmune thyroiditis | CPT/HCPCS: 80053; 80061; 83036; 84443 ==

== ENCOUNTER → 2025-02-15 15:43 | Outpatient (BNVA) | payer BC, SELFPAY | PROVIDERS: PCP Nurse Practitioner; Visit Provider Nurse Practitioner | DX: E11.9 Type 2 diabetes mellitus without complications (principal) | CPT/HCPCS: 83036 ==

== ENCOUNTER → 2025-06-21 16:37 | Outpatient (BNVA) | payer BC, SELFPAY | PROVIDERS: PCP Nurse Practitioner; Visit Provider Nurse Practitioner | DX: I10 Essential (primary) hypertension (principal); E11.9 Type 2 diabetes mellitus without complications; E78.5 Hyperlipidemia, unspecified; E06.3 Autoimmune thyroiditis | CPT/HCPCS: 80053; 80061; 83036; 84443 ==